=== PATIENT | male | born 1985 | race Caucasian/White ===

== ENCOUNTER 2019-12-21 16:49 | Observation (INO) | payer OTHER ==
[~2019-12-21] VITALS: Ht 188 cm; Wt 93.0 kg
[~2019-12-21 16:49] MED LIST: ACEDIPPM PO; ACET500; ALBU90I INH; ALBU90OI INH; ALBU90OI6 INH; AMOCLA875 PO; AMOX500 PO; ANTIFUNGAL CREA14 GM TOP; AZIT250 PO; BENZ100A PO; CARI350 PO; CEPH500 PO; CETI10 PO; CIPR500 PO; CLIN150 PO; CYCL10 PO; DIPATR PO; DIPH50; DIPH50 PO; DOXY100 PO; FAMO20 PO; GUAI600T33 PO; HYDACE10B PO; HYDACE5 PO; HYDACE5325 PO; HYDHCL25 PO; IBUP800 PO; KETO10 PO; LOPE2C PO; METR500 PO; NAPR500 PO; Norco 5-325 Ta1 EACH PO; ONDA4ODT MM; OXYACE5T PO; PENVK500 PO; PRED20 PO; PREVPAC PO; PROACE100 PO; PROM25 PO; RXCODGUASY PO; RXHYDGUAS PO; RXPROACE PO; RXPROM25 PO; RXTRAM50 PO; SILSUL1TC TOP; SULTRIDS PO; TRAM50 PO; TRIA80TC TOP
[2019-12-21 20:05] LABS: BASOPHILS ABSOLUTE AUTO 0.04 K/mm3 (0.00-0.23); BASOPHILS PERCENT AUTO 0 % (0-2); EOSINOPHILS ABSOLUTE AUTO 0.04 K/mm3 (0.00-0.68); EOSINOPHILS PERCENT AUTO 0 % (0-6); Hematocrit 48.8 % (37.0-53.0); Hemoglobin 16.6 g/dL (13.5-17.5); IMMATURE GRAN ABSOLUTE AUTO 0.02 K/mm3 (0.00-0.10); IMMATURE GRAN PERCENT AUTO 0 % (0-1); LYMPHOCYTES ABSOLUTE AUTO 1.59 K/mm3 (0.84-5.20); LYMPHOCYTES PERCENT AUTO 16 % (21-46); MONOCYTES ABSOLUTE AUTO 0.83 K/mm3 (0.16-1.47); MONOCYTES PERCENT AUTO 8 % (4-13); Mean Corpuscular HGB 30.6 pg (26.0-34.0); Mean Corpuscular Volume 90 fL (80-100); Mean Platelet Volume 9.6 fL (9.1-12.4); NEUTROPHILS ABSOLUTE AUTO 7.44 K/mm3 (1.96-9.15); NEUTROPHILS PERCENT AUTO 75 % (41-73); Platelet Count 208 K/mm3 (150-400); RDW Coefficient Variation 12.7 % (11.7-14.2); RDW Standard Deviation 41.6 fL (35.1-46.3); Red Blood Cell Count 5.43 M/mm3 (4.30-5.90); White Blood Cell Count 9.96 K/mm3 (4.00-11.30)
[2019-12-21 20:20] LABS: Anion Gap 5 mmol/L (6-16); Blood Urea Nitrogen 15 mg/dL (8-24); Bun/Creatinine Ratio 20.5 (12.0-20.0); CO2, Blood 26 mmol/L (21-32); Calcium, Blood 9.1 mg/dL (8.5-10.1); Chloride, Blood 106 mmol/L (98-108); Creatinine, Blood 0.73 mg/dL (0.60-1.20); Glomerular Filtration Rate >60 (60-); Glucose, Blood 119 mg/dL (70-99); Potassium, Blood 3.6 mmol/L (3.5-5.5); Sodium, Blood 137 mmol/L (136-145)
--- NOTE | 2019-12-22 03:05 | NUR ---
PT UP TO AMBULATE, REQUESTS SALINE LOCK. AMBULATES OUTSIDE WITH FRIENDS.
[2019-12-22 05:56] LABS: Hematocrit 49.8 % (37.0-53.0); Hemoglobin 17.1 g/dL (13.5-17.5); Mean Corpuscular HGB 30.9 pg (26.0-34.0); Mean Corpuscular HGB Conc 34.3 g/dL (31.5-36.5); Mean Corpuscular Volume 90 fL (80-100); Mean Platelet Volume 9.4 fL (9.1-12.4); Platelet Count 199 K/mm3 (150-400); RDW Coefficient Variation 12.6 % (11.7-14.2); RDW Standard Deviation 42.2 fL (35.1-46.3); Red Blood Cell Count 5.54 M/mm3 (4.30-5.90); White Blood Cell Count 11.58 K/mm3 (4.00-11.30)
[2019-12-22 06:22] LABS: Alanine Aminotransfer (ALT/SGP 32 U/L (12-78); Albumin, Blood 3.9 g/dL (3.4-5.0); Albumin/Globulin Ratio 1.1 (0.8-1.8); Alk Phos 76 U/L (50-136); Anion Gap 6 mmol/L (6-16); Aspartate Aminotrans (AST/SGOT 34 U/L (12-37); Bilirubin, Total 2.1 mg/dL (0.1-1.0); Blood Urea Nitrogen 15 mg/dL (8-24); Bun/Creatinine Ratio 16.8 (12.0-20.0); CO2, Blood 25 mmol/L (21-32); Chloride, Blood 107 mmol/L (98-108); Creatinine, Blood 0.89 mg/dL (0.60-1.20); Globulin, Blood 3.6 g/dL (2.2-4.0); Glomerular Filtration Rate >60 (60-); Glucose, Blood 98 mg/dL (70-99); Potassium, Blood 3.9 mmol/L (3.5-5.5); Sodium, Blood 138 mmol/L (136-145); Total Protein, Blood 7.5 g/dL (6.4-8.2)
--- NOTE | 2019-12-22 06:41 | NUR ---
PT UP FREQUENTLY TO AMBULATE TO OUTSIDE WITH FRIENDS/SIG OTHER. CONTINUES TO DENY NAUSEA, COMPLAINS OF PAIN TO RIGHT HAND AT SITE OF LACERATION, CONTROLLED TO 4/10 WITH FENTANYL 25 MCG. HAVE EXPLAINED TO PT IMPORTANCE OF REMAINING NPO PER ORDERS HOWEVER PT CONTINUES TO REQUEST FOOD AND PO FLUIDS AND STATES "NOT FOR ME, FOR HER" AND INDICATES SIGNIFICANT OTHER AT BEDSIDE. PT IS NOTED TO HAVE RANDOM SUDDEN MOVEMENTS, FLIGHT OF IDEAS, SPEECH PATTERN IS RAPID, INTERMITTENT TWITCHING IS NOTED WHEN PT APPEARS TO SLEEP. PT DOES ADMIT TO USING METH APPROXIMATELY 2 TIMES PER MONTH. CONT TO AWAIT ROOM ASSIGNMENT, CONT TO MONITOR.
--- NOTE | 2019-12-22 07:00 | NUR ---
REPORT FROM CHANI JAUREGUI RN. ASSUMED PT CARE.
--- NOTE | 2019-12-22 07:30 | NUR ---
PT AMBULATING IN HALLWAY, AMB W/O DIFFICULTY. DENIES IMMEDIATE NEEDS.
--- NOTE | 2019-12-22 08:00 | NUR ---
VSS. ASSESSMENT CHARTED. DR BERRIOS TO ROOM FOR EVAL AND TO CONSENT PT TO PROCEDURE. NEW DRESSING (NONADHERENT TELFA AND COBAN) APPLIED TO WOUND TO RIGHT HAND. PT HAS MULT VISITORS AT BEDSIDE.
--- NOTE | 2019-12-22 08:35 | NUR ---
PT MEDICATED WITH ZOFRAN AND TORADOL PER EMAR. INSTRUCTED PT TO LEAVE IV PUMP PLUGGED IN.
--- NOTE | 2019-12-22 09:20 | NUR ---
PT NOT IN ROOM AT THIS TIME. INSTRUCTED BY MATERIAL DISTRIBUTOR THAT PT HAS GONE OUTSIDE.
--- NOTE | 2019-12-22 10:34 | NUR ---
PT IN AND OUT OF RR INDEPENDENTLY. PT ASKING FOR SOMETHING FOR PAIN. WILL CONSULT MED REC AND MEDICATE ACCORDINGLY. AWAITING ROOM ASSIGNMENT.
--- NOTE | 2019-12-22 10:40 | NUR ---
PT MEDICATED WITH 50MCG IV FENTANYL. INSTRUCTED PT TO STAY IN ROOM AND TO NOT GO OUTSIDE AT THIS TIME. PT VERBALIZED UNDERSTANDING.
--- NOTE | 2019-12-22 10:46 | NUR ---
ROOM ASSIGNMENT RECEIVED. 305. ROOM NOT READY.
--- NOTE | 2019-12-22 10:47 | NUR ---
PT DAD LEAVING TO RUN ERRANDS. WOULD LIKE TO BE NOTIFIED OF WHEN PT GOES TO OR. ISAÍAS MELVIN #[phone]
--- NOTE | 2019-12-22 11:31 | NUR ---
NURSE CINTIA AWARE OF PT. ROOM READY. NURSE TO CALL ED FOR REPORT. CLINDA STARTED PER EMAR.
--- NOTE | 2019-12-22 12:08 | NUR ---
PT TO OR WITH ROBBIE CORBETT. ALL BELONGINGS AND CHART SENT WITH PT.
--- NOTE | 2019-12-22 12:14 | NUR ---
REPORT TO CINTIA CORBETT ON 3RD FLOOR.
--- NOTE | 2019-12-22 13:02 | NUR ---
1222 ASSUMED CARE FROM GERARDO. PT SITTING UP IN BED VERY FIGITY AND INCREASE ANXIETY. DR ELLIS AT BEDSIDE GETTING CONSENT FOR SURGERY. PATIENTS GIRLFRIEND AT BEDSIDE. 1245 DR ELLIS GAVE VERBAL ORDER TO GIVE VERSED 3MG IVP PRIOR TO SURGERY. PATIENT CONTINUES TO HAVE INCREASE ANXIETY AND PARANOIA NOTED.
--- NOTE | 2019-12-22 15:47 | NUR ---
PER FAMILY PATIENT REQUESTED "EVERYTHING BUT THE KITCHEN SINK". WENT TO BRING SNACKS TO PATIENT. NOTED PATIENT OUT OF THE ROOM AT 1546. S/O STATED PATIENT WOULD BE RIGHT BACK.
--- NOTE | 2019-12-22 19:41 | NUR ---
SHIFT SUMMARY: PATIENT ADMIT TO MEDICAL VIA SURGERY THIS SHIFT. PT A&O; IRRITABLE, AGGRESSIVE; COOPERATIVE WITH SOME CARE. PATIENT OUTSIDE TO SMOKE SEVERAL TIMES THIS SHIFT. VSS. MEDICATED FOR PAIN PER EMAR; PT STATES PAIN POORLY CONTROLLED BY AVAILABLE MEDS. EXPECTED D/C HOME WITH PO ABX 12/23. REPORT GIVEN TO RONNIE CORBETT.
--- NOTE | 2019-12-22 20:10 | NUR ---
BIA IS SITTING UP IN BED, HAS BEEN OUTSIDE TO SMOKE AND CAME RIGHT BACK IN. HE IS VERY ANXIOUS AND RESTLESS, HOLDING HIS HAND. STATING IT HURTS AND IT NOT IN A GOOD MOOD DUE TO PAIN. STATES WHEN HE GOT THE DILUDID IT HELPED FOR A SHOFT BIT BUT CAME RIGHT BACK. HE REFUSED THE NORCO, AND ULTRAM HE REPORTS SENSITIVE TO TYLENOL. REPORTS PAIN AT 8/10 AT THIS MOMENT. CALLED HOSPITALIST AND GOT NEW ORDERS FOR CHANGE IN HIS PAIN MEDS. WILL ADMINISTER THEM AND RE-EVAL PAIN.
--- NOTE | 2019-12-23 00:20 | NUR ---
RECIEVED CALL FROM PCU NURSE REPORTING THAT HER PATIENT WAS OUTSIDE WITH 305 SMOKING. SHE OVERHEARD HIM TALKING ON THE PHONE MAKING A DEAL WITH SOMEONE TO BRING HIM SOME HERION. HE HAD ASKED THE PERSON FOR SOME MONEY AND TOLD HER HE WOULD PAY HER BACK SHE JUST HAD TO COME TO ROOM 305. NURSE JANES REPORTS SHE IS NOT SURE HOW RELIABLE HER PATIENT IS BUT THOUGHT WE SHOULD KNOW. INFORMED CHARGE NURSE OF THE SITUATION, WHO INFORMED ME TO CALL SECURITY. INFORMED SECURITY WHO SAID THEY WILL WATCH OUT FOR HIM. PATIENT WAS CURRENTLY OUT OF THE ROOM.
[2019-12-23 04:59] LABS: BASOPHILS ABSOLUTE AUTO 0.02 K/mm3 (0.00-0.23); BASOPHILS PERCENT AUTO 0 % (0-2); EOSINOPHILS PERCENT AUTO 0 % (0-6); Hematocrit 49.8 % (37.0-53.0); Hemoglobin 17.1 g/dL (13.5-17.5); IMMATURE GRAN ABSOLUTE AUTO 0.03 K/mm3 (0.00-0.10); IMMATURE GRAN PERCENT AUTO 0 % (0-1); LYMPHOCYTES ABSOLUTE AUTO 1.05 K/mm3 (0.84-5.20); LYMPHOCYTES PERCENT AUTO 11 % (21-46); MONOCYTES ABSOLUTE AUTO 0.79 K/mm3 (0.16-1.47); MONOCYTES PERCENT AUTO 9 % (4-13); Mean Corpuscular HGB 30.8 pg (26.0-34.0); Mean Corpuscular HGB Conc 34.3 g/dL (31.5-36.5); Mean Corpuscular Volume 90 fL (80-100); Mean Platelet Volume 9.7 fL (9.1-12.4); NEUTROPHILS ABSOLUTE AUTO 7.29 K/mm3 (1.96-9.15); NEUTROPHILS PERCENT AUTO 80 % (41-73); Platelet Count 232 K/mm3 (150-400); RDW Coefficient Variation 12.6 % (11.7-14.2); RDW Standard Deviation 41.4 fL (35.1-46.3); Red Blood Cell Count 5.55 M/mm3 (4.30-5.90); White Blood Cell Count 9.18 K/mm3 (4.00-11.30)
[2019-12-23 05:28] LABS: Alanine Aminotransfer (ALT/SGP 33 U/L (12-78); Alk Phos 76 U/L (50-136); Anion Gap 8 mmol/L (6-16); Aspartate Aminotrans (AST/SGOT 28 U/L (12-37); Bilirubin, Total 2.2 mg/dL (0.1-1.0); Blood Urea Nitrogen 17 mg/dL (8-24); Bun/Creatinine Ratio 18.4 (12.0-20.0); CO2, Blood 27 mmol/L (21-32); Calcium, Blood 9.2 mg/dL (8.5-10.1); Chloride, Blood 102 mmol/L (98-108); Creatinine, Blood 0.92 mg/dL (0.60-1.20); Globulin, Blood 3.9 g/dL (2.2-4.0); Glomerular Filtration Rate >60 (60-); Glucose, Blood 112 mg/dL (70-99); Potassium, Blood 4.4 mmol/L (3.5-5.5); Sodium, Blood 137 mmol/L (136-145); Total Protein, Blood 7.9 g/dL (6.4-8.2)
--- NOTE | 2019-12-23 05:55 | NUR ---
SHIFT SUMMARY; BIA HAS BEEN UP MOST OF THE NIGHT. HE REPORTS PAIN OF 8/10 IN HIS HAND THAT CONTINUES TO THROB. HE HAS GONE OUTSIDE ALMOST EVERY HOUR TO BEGIN WITH, TO SMOKE. HE ONLY IS OUT FOR 10 MINUTES AT A TIME. HE HAS BEEN COOPERATIVE. DID CALL HOSPITALIST LAST NIGHT REGARDING HIS PAIN. NEW ORDERS FOR CHANGE IN PAIN MANAGEMENT RECEIVED. THE DILAUDID AND TORDOL ALONG WITH OXYCODONE HAS HELPED TO KEEP HIS PAIN DOWN TO 4/10, IT LAST FOR 4 HOURS THE MOST. HE SLEPT FOR SHORT PERIOD OF TIME. HE DID REFUSE VITALS ALL NIGHT, AND ALMOST REFUSED LABS TO BE DRAWN. BUT WAS ABLE TO DISCUSS THE IMPORTANCE OF THEM. THEREFORE HE ALLOWED THE LABS TO BE DRAWN. NO OTHER ACUTE CHANGES OCCURRED THIS SHIFT. WILL REPORT TO DAY SHIFT.
[2019-12-23 06:08] LABS: HBSAG SCREEN Negative (Negative); HEP A AB, IGM Negative (Negative); HEP B CORE AB, TOT Negative (Negative); HEP C VIRUS AB <0.1 (0.0-0.9)
[2019-12-23] MEDS ORDERED: ACET325 PO (08:36)
[2019-12-23] MEDS ORDERED: CLIN300 PO (08:37)
[2019-12-23] MEDS ORDERED: BISA5EC PO (08:37)
[2019-12-23] MEDS ORDERED: DOCU100 PO (08:37)
[2019-12-23] MEDS ORDERED: LEVO750 PO (08:38)
[2019-12-23] MEDS ORDERED: ONDA4ODT MM (08:38)
[2019-12-23] MEDS ORDERED: OXYC5 PO (08:38)
[2019-12-23] MEDS ORDERED: SENN187 PO (08:39)
[2019-12-23] MEDS ORDERED: Florastor250 MG PO (08:39)
--- NOTE | 2019-12-23 12:39 | NUR ---
HE IS TRYING TO STAY STILL AND STAY IN THE ROOM UNTIL COMES. UNTIL NOON, HE WAS OUTSIDE MORE THAN INSIDE THIS MORNING. HE RETURNS TO THE ROOM THEN LEAVES AGAIN WITH 10 MIN. HE ATE BREAKFAST WELL. HE HAS BEEN MEDICATED FOR PAIN IN HIS HAND WITH DILAUDID. HE TOLD THAT THE TORADOL AND PILLS DON'T WORK. HE HAS DISCHARGE ORDERS FOR THIS AFTERNOON AFTER CHANGES HIS DRESSING. HIS FAMILY IS IN THE ROOM WITH HIM. HE HAS GOOD CMS IN HIS FINGERS.
--- NOTE | 2019-12-23 19:39 | NUR ---
HE DISCHARGED HOME AT 1721. HE RIPPED HIS INSTRUCTIONS IN HALF BEFORE HE LEFT BUT TOOK THEM WITH HIM. CHANGED HIS HAND DRESSING BEFORE HE LEFT BUT MADE HIM VERY ANGRY. HE SOUGHT OUT THE NURSING INFORMATION TECHNOLOGY SECURITY MANAGER AND PATIENT ADVOCATE WILL FOLLOW UP. HE WAS COOPERATIVE WITH US TODAY WHEN HE WAS PRESENT. HE WAS OUTSIDE MORE THAN HE WAS IN. HE WAS SO RESTLESS GOING BACK AND FORTH. HIS FAMILY WAS PRESENT MOST OF THE DAY. THEY COULD NOT PERSUADE HIM TO RELAX OR CALM HIMSELF. DILAUDID, OXY AND TORADOL ALL GIVEN FOR PAIN IN HIS HAND. HE ATE AND DRANK WELL. GOOD CMS IN HIS AFFECTED FINGERS.
== END 2019-12-23 17:21 | disposition home or self-care (01) ==
LOC: ER 16:49 → ERHOLD 16:50 → MEDS 16:51 → ERHOLD 21:47 → MEDS 12-22 12:08 → ENPENDDIS 12-23 08:32 → MEDS 12-23 17:21
PROVIDERS: Family Medicine; Orthopaedic Surgery; Physician Assistant; ADMIT Internal Medicine
PROC: 0LB70ZZ Excision of Right Hand Tendon, Open Approach (ICD-10-PCS; principal; 2019-12-22 12:30)
DX: S61.256A Open bite of right little finger without damage to nail, initial encounter (principal); F15.10 Other stimulant abuse, uncomplicated; F17.210 Nicotine dependence, cigarettes, uncomplicated; L03.011 Cellulitis of right finger; Y04.1XXA Assault by human bite, initial encounter; Z88.8 Allergy status to other drugs, medicaments and biological substances
CPT/HCPCS: 36415; 73130; 80048; 80053; 85025; 85027; 86704; 86708; 86803; 87340; 96365; 96375; 96376; 99284-25; G0378; J1100; J1170; J1200; J1885; J1956; J2250; J2405; J2704; J3010; J7030; J7120

== ENCOUNTER 2019-12-25 09:24 | Day surgery (SDC) | payer OTHER ==
[~2019-12-25 09:24] MED LIST changes: +ACET325 PO; +BISA5EC PO; +CLIN300 PO; +DOCU100 PO; +Florastor250 MG PO; +LEVO750 PO; +OXYC5 PO; +SENN187 PO
== END 2019-12-25 15:33 | disposition home or self-care (01) ==
LOC: ATC 09:24
DX: L03.113 Cellulitis of right upper limb (principal); F17.210 Nicotine dependence, cigarettes, uncomplicated; Z88.0 Allergy status to penicillin; Z88.8 Allergy status to other drugs, medicaments and biological substances

== ENCOUNTER 2019-12-28 15:45 | Day surgery (SDC) | payer OTHER | END 2019-12-28 16:15 | disposition home or self-care (01) | LOC: ATC 15:45 | DX: L03.113 Cellulitis of right upper limb (principal); Z88.5 Allergy status to narcotic agent; Z88.0 Allergy status to penicillin; F17.210 Nicotine dependence, cigarettes, uncomplicated | CPT/HCPCS: 99211 ==

== ENCOUNTER 2019-12-29 01:48 | Day surgery (SDC) | payer OTHER ==
--- NOTE | 2019-12-29 15:28 | NUR ---
WHEN ATTEMPTING TO DO HIS DRESSING CHANGE PT BECAME VERBALLY ABUSIVE. PT CALLED THIS RN ALOT OF EXPLETIVE WORDS. PT THAN STOOD UP AND AGRESSIVELY CAME TOWARD RN. PT RAN DOWN DE ANDA AND WENT INTO WOUND CARE SUPERVISORS OFFICE AND ASKED FOR SOMEONE ELSE TO DO HIS WOUND CARE. RN THAN LEFT ROOM AND CALLED AND MAHAMED MCDANIEL RN TO COME TO ROOM. TALKED WITH PT FOR A FEW MINUTES AND DRESSING WAS FINISHED BY MAHAMED MCDANIEL RN.
--- NOTE | 2019-12-29 15:34 | NUR ---
NO VITALS WERE TAKEN ON PT HE LEFT ANGRY.
== END 2019-12-29 14:40 | disposition home or self-care (01) ==
LOC: ATC 01:48
DX: L03.113 Cellulitis of right upper limb (principal); Z88.8 Allergy status to other drugs, medicaments and biological substances
CPT/HCPCS: 99211

== ENCOUNTER 2019-12-30 00:09 | Day surgery (SDC) | payer OTHER ==
--- NOTE | 2019-12-30 17:38 | NUR ---
PT CAME INTO ROOM VERY PLEASANT, HOWEVER APPEARED ANXIOUS. 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 PT APPEARS TO BE PLENTY CAPABLE TO DO HIS OWN DRESSING CHANGE AT HOME, AND SINCE HE IS CUTTING FIRE WOOD AND GETTING THE DRESSING DIRTY THIS MIGHT BE A BETTER ALTERNATIVE FOR THIS PT.
== END 2019-12-30 22:51 | disposition home or self-care (01) ==
LOC: ATC 00:09
DX: L03.114 Cellulitis of left upper limb (principal); Z88.5 Allergy status to narcotic agent; Z88.0 Allergy status to penicillin; F17.210 Nicotine dependence, cigarettes, uncomplicated
CPT/HCPCS: 99211

== ENCOUNTER 2019-12-31 | Day surgery (SDC) | payer OTHER | END 2019-12-31 14:12 | disposition home or self-care (01) | LOC: ATC | DX: L03.114 Cellulitis of left upper limb (principal); F17.210 Nicotine dependence, cigarettes, uncomplicated; Z88.5 Allergy status to narcotic agent; Z88.0 Allergy status to penicillin | CPT/HCPCS: 99211 ==

== ENCOUNTER 2021-01-16 18:16 | Emergency (ER) | payer SELFPAY ==
[~2021-01-16] VITALS: Ht 185.4 cm; Wt 88.5 kg
[2021-01-16 19:30] LABS: BASOPHILS ABSOLUTE AUTO 0.02 K/mm3 (0.00-0.23); BASOPHILS PERCENT AUTO 0 % (0-2); EOSINOPHILS ABSOLUTE AUTO 0.08 K/mm3 (0.00-0.68); EOSINOPHILS PERCENT AUTO 1 % (0-6); Hematocrit 44.1 % (37.0-53.0); Hemoglobin 15.1 g/dL (13.5-17.5); IMMATURE GRAN ABSOLUTE AUTO 0.05 K/mm3 (0.00-0.10); IMMATURE GRAN PERCENT AUTO 1 % (0-1); LYMPHOCYTES ABSOLUTE AUTO 1.65 K/mm3 (0.84-5.20); LYMPHOCYTES PERCENT AUTO 15 % (21-46); MONOCYTES ABSOLUTE AUTO 0.98 K/mm3 (0.16-1.47); MONOCYTES PERCENT AUTO 9 % (4-13); Mean Corpuscular HGB 29.2 pg (26.0-34.0); Mean Corpuscular HGB Conc 34.2 g/dL (31.5-36.5); Mean Corpuscular Volume 85 fL (80-100); Mean Platelet Volume 9.5 fL (9.1-12.4); NEUTROPHILS ABSOLUTE AUTO 7.97 K/mm3 (1.96-9.15); NEUTROPHILS PERCENT AUTO 74 % (41-73); Platelet Count 239 K/mm3 (150-400); RDW Coefficient Variation 12.4 % (11.7-14.2); RDW Standard Deviation 38.9 fL (35.1-46.3); Red Blood Cell Count 5.17 M/mm3 (4.30-5.90); White Blood Cell Count 10.75 K/mm3 (4.00-11.30)
[2021-01-16 19:43] LABS: Alanine Aminotransfer (ALT/SGP 78 U/L (12-78); Albumin/Globulin Ratio 0.7 (0.8-1.8); Alk Phos 118 U/L (50-136); Anion Gap 5 mmol/L (6-16); Aspartate Aminotrans (AST/SGOT 40 U/L (12-37); Bilirubin, Total 0.9 mg/dL (0.1-1.0); Blood Urea Nitrogen 12 mg/dL (8-24); Bun/Creatinine Ratio 15.8 (12.0-20.0); CO2, Blood 29 mmol/L (21-32); Calcium, Blood 8.5 mg/dL (8.5-10.1); Chloride, Blood 102 mmol/L (98-108); Creatinine, Blood 0.76 mg/dL (0.60-1.20); Globulin, Blood 4.2 g/dL (2.2-4.0); Glomerular Filtration Rate >60 (60-); Glucose, Blood 134 mg/dL (70-99); Potassium, Blood 3.8 mmol/L (3.5-5.5); Sodium, Blood 136 mmol/L (136-145); Total Protein, Blood 7.2 g/dL (6.4-8.2)
[2021-01-16] MEDS ORDERED: CEPH500 PO (23:03)
[2021-01-16] MEDS ORDERED: Prednisone20 MG PO (23:03)
[2021-01-16] MEDS ORDERED: Benadryl 50 mg50 MG PO (23:03)
== END 2021-01-16 23:30 | disposition home or self-care (01) ==
LOC: ER 18:16
PROVIDERS: Emergency Medicine
DX: T78.2XXA Anaphylactic shock, unspecified, initial encounter (principal); K13.0 Diseases of lips
CPT/HCPCS: 80053; 85025; 93005; 93010; 96365; 96372-59; 96375; 99285-25; J0171; J0690; J1200; J2930; J7030

== ENCOUNTER 2021-03-09 19:22 | Emergency (ER) | payer SELFPAY ==
[~2021-03-09] VITALS: Ht 188 cm; Wt 90.7 kg
[~2021-03-09 19:22] MED LIST changes: +Benadryl 50 mg50 MG PO; +Prednisone20 MG PO
[2021-03-09] MEDS ORDERED: Vibramycin100 MG PO ×2 (21:58→22:00)
== END 2021-03-09 22:31 ==
LOC: ER 19:22
DX: S51.852A Open bite of left forearm, initial encounter (principal); I10 Essential (primary) hypertension; F17.200 Nicotine dependence, unspecified, uncomplicated; Z88.0 Allergy status to penicillin; Z88.8 Allergy status to other drugs, medicaments and biological substances; W54.0XXA Bitten by dog, initial encounter
CPT/HCPCS: 12002; 73090; 90471; 90714; 99284-25; A9270

== ENCOUNTER 2021-05-03 08:56 | Emergency (ER) | payer SELFPAY ==
[~2021-05-03 08:56] MED LIST changes: +Vibramycin100 MG PO
== END 2021-05-03 09:48 | disposition left against medical advice (07) ==
LOC: ER 08:56
DX: Z53.21 Procedure and treatment not carried out due to patient leaving prior to being seen by health care provider (principal)